=== PATIENT | female | born 1985 | race Caucasian/White ===

== ENCOUNTER 2020-03-03 16:27 | Emergency (ER) | payer MEDICAID ==
[~2020-03-03] VITALS: Ht 172.7 cm; Wt 77.3 kg
[2020-03-03 16:38] VITALS: BP 130/83
[2020-03-03] MEDS ORDERED: TETanus/Pertussis (Acell)/Diphther VAC/PF (Tdap-Adult) 0.5ml syringe IMVAC ONE (17:35)
[2020-03-03] MEDS ORDERED: LIDOcaine 1% W/epiNEPHrine 1:200,000 10ml vial IJ ONE (17:35)
--- NOTE | 2020-03-03 18:07 | NUR ---
JEFF NOT WORKING ADMINSTERED W/O SCANNING.
== END 2020-03-03 18:52 | disposition home or self-care (01) ==
LOC: ER 16:28
DX: S61.213A Laceration without foreign body of left middle finger without damage to nail, initial encounter (principal); W26.0XXA Contact with knife, initial encounter; Y93.89 Activity, other specified; Y92.89 Other specified places as the place of occurrence of the external cause; Y99.8 Other external cause status
CPT/HCPCS: 12001; 90471; 90715; 99283

== ENCOUNTER 2020-03-13 07:56 | Emergency (ER) | payer MEDICAID ==
[~2020-03-13] VITALS: Ht 172.7 cm; Wt 77.0 kg
[2020-03-13 08:13] VITALS: BP 115/71
== END 2020-03-13 08:54 | disposition home or self-care (01) ==
LOC: ER 07:57
DX: S61.219D Laceration without foreign body of unspecified finger without damage to nail, subsequent encounter (principal); Z48.00 Encounter for change or removal of nonsurgical wound dressing; X58.XXXD Exposure to other specified factors, subsequent encounter
CPT/HCPCS: 99281

== ENCOUNTER 2022-07-27 13:51 | Emergency (ER) | payer MEDICAID ==
[~2022-07-27] VITALS: Ht 172.7 cm; Wt 72.0 kg
[2022-07-27 14:10] VITALS: BP 123/87
== END 2022-07-27 15:04 | disposition home or self-care (01) ==
LOC: ER 13:52
DX: K64.4 Residual hemorrhoidal skin tags (principal)
CPT/HCPCS: 99281

== ENCOUNTER 2024-02-09 21:08 | Emergency (ER) | payer MEDICAID ==
[~2024-02-09] VITALS: Ht 172.7 cm; Wt 75.2 kg
[2024-02-09] MEDS ORDERED: PRED50TA PO (21:35)
[2024-02-09] MEDS: dexamethasone sod phosphate 10mg/ml inj IM STA (21:47)
[2024-02-09 21:53] VITALS: BP 142/91; PULSE 80; RESP 18; TEMP 98.6; O2SAT 99
== END 2024-02-09 21:55 | disposition home or self-care (01) ==
LOC: ER 21:09
DX: T63.441A Toxic effect of venom of bees, accidental (unintentional), initial encounter (principal); Y92.89 Other specified places as the place of occurrence of the external cause
CPT/HCPCS: 96372; 99283; J1100